=== PATIENT | male | born 1975 | race Caucasian/White ===

== ENCOUNTER 2022-09-09 22:15 | Emergency (ER) | payer SELFPAY ==
[~2022-09-09] VITALS: Ht 162.6 cm; Wt 75.0 kg
[2022-09-09 22:20] VITALS: BP 136/80
== END 2022-09-09 22:52 | disposition left against medical advice (07) ==
LOC: ER 22:15
DX: Z53.21 Procedure and treatment not carried out due to patient leaving prior to being seen by health care provider (principal)

== ENCOUNTER 2022-09-09 22:49 | Emergency (ER) | payer OTHER | END 2022-09-09 23:25 | disposition left against medical advice (07) | LOC: ER 22:49 | DX: Z53.21 Procedure and treatment not carried out due to patient leaving prior to being seen by health care provider (principal) ==

== ENCOUNTER 2022-09-10 00:17 | Emergency (ER) | payer MEDICAID, OTHER ==
[~2022-09-10] VITALS: Ht 177.8 cm; Wt 91.0 kg
[2022-09-10 00:29] VITALS: BP 112/68
[2022-09-10 01:50] LABS: BASOPHILS % 0.6 % (0.0-2.0); HEMATOCRIT. 43.7 % (42.0-52.0); HEMOGLOBIN. 14.7 g/dL (14.0-18.0); MEAN CORPUSCULAR HEMOGLOBIN 29.2 pg (28.0-32.0); MEAN CORPUSCULAR VOLUME 86.8 fL (80.0-94.0); MONOCYTES % 7.7 % (2.0-8.0); NEUTROPHILS % 56.7 % (40.0-76.0); PLATELET 503 x1000/uL (130-400); RED BLOOD CELL COUNT 5.03 mill/uL (4.7-6.1); RED CELL DISTRIBUTION WIDTH 14.4 % (11.6-14.6)
[2022-09-10 01:55] LABS: CHLORIDE 109 mEq/L (98-107)
[2022-09-10 02:06] LABS: ETHANOL BLOOD 183 mg/dL
== END 2022-09-10 01:56 | disposition left against medical advice (07) ==
LOC: ER 00:20
DX: R45.851 Suicidal ideations (principal); F20.9 Schizophrenia, unspecified; F10.10 Alcohol abuse, uncomplicated; Y90.6 Blood alcohol level of 120-199 mg/100 ml; F31.9 Bipolar disorder, unspecified; R94.31 Abnormal electrocardiogram [ECG] [EKG]
CPT/HCPCS: 36415; 80053; 80307; 80320; 80329; 85025; 93005; 99284; G0480

== ENCOUNTER 2022-09-10 03:21 | Emergency (ER) | payer MEDICAID, OTHER ==
[~2022-09-10] VITALS: Ht 165.1 cm; Wt 78.6 kg
[2022-09-10 03:24] VITALS: BP 119/79
== END 2022-09-10 07:53 | disposition left against medical advice (07) ==
LOC: ER 03:31
DX: Z53.21 Procedure and treatment not carried out due to patient leaving prior to being seen by health care provider (principal)